=== PATIENT | female | born 1995 | race Caucasian/White ===

== ENCOUNTER 2019-04-02 14:02 | Emergency (ER) | payer OTHER, SELFPAY ==
[2019-04-02 14:15] VITALS: BP 109/74; PULSE 66; RESP 18; TEMP 37.1; O2SAT 96; BMI 26.6
--- NOTE | 2019-04-02 14:26 | DI.RAD.S_ITS ---
PROCEDURE: XR FOOT RT MIN 3V INDICATIONS: stepped on unknown foreign body. Please eval for retained TECHNIQUE: 3 views of the foot were acquired. COMPARISON: None. FINDINGS: Bones: No fractures or dislocations. No suspicious bony lesions. Soft tissues: No tibiotalar joint effusion. Achilles tendon appears normal. IMPRESSION: No radiopaque foreign body. No acute fracture. No osseous lesion. If symptoms or clinical suspicion for pathology persists, repeat plain films, or advanced imaging (CT, bone scan, or MRI) may be helpful for further assessment. Dictated by: [place] Ayala M.D. on 04/02/2019 at 13:45 Approved by: [place] Ayala M.D. on 04/02/2019 at 13:45
--- NOTE | 2019-04-02 15:10 | PC.NURSE ---
Late Entry at 1510-noticed mild swelling to lower puncture wounds. No active bleeding at this time. Pt assisted with wound scrubbing and soaking the affected foot in water+hibiclens solution. Pt tolerating this well
--- NOTE | 2019-04-02 15:11 | ED.SKABFB ---
HPI - Skin/Abscess/Foreign Bdy <Keisha Menon PA-C - Last Filed: 04/02/19 21:02> General Chief complaint: Skin/Abscess/Foreign Body Stated complaint: Stepped on sharp object Time Seen by Provider: 04/02/19 15:34 Source: patient Mode of arrival: ambulatory Limitations: no limitations History of Present Illness HPI narrative: This 23-year-old female stepped on a metal numeric marker at work that punctured through her rubber soled shoes into her right foot. She has had pain and difficulty putting pressure on the foot since then. She denies any other injury. Not painful without pressure on the area. She is not sure of when her last tetanus vaccine was. She denies any possibility of Related Data Home Medications Medication Instructions Recorded Confirmed Mirena 52 mg INTRAU #0 ea 06/30/16 06/22/18 Previous Rx's Medication Instructions Recorded levofloxacin 500 mg PO DAILY 7 Days #7 tab 04/02/19 Allergies Allergy/AdvReac Type Severity Reaction Status Date / Time No Known Allergies Allergy Uncoded 06/22/18 10:51 Review of Systems <Keisha Menon PA-C - Last Filed: 04/02/19 21:02> Review of Systems ROS Unobtainable: All systems reviewed & are unremarkable except as noted in HPI and below PFSH <Keisha Menon PA-C - Last Filed: 04/02/19 21:02> Medical History (Updated 04/02/19 @ 15:52 by Keisha Menon PA-C) depression (Resolved) Surgical History (Updated 04/02/19 @ 15:48 by Keisha Menon PA-C) Status post ORIF of fracture of ankle (Resolved) Social History Smoking Status: Current every day smoker Social History Smoking Status: Current every day smoker Exam <Keisha Menon PA-C - Last Filed: 04/02/19 21:02> Narrative Exam Narrative: GENERAL APPEARANCE: Patient sitting comfortably, in no distress. LUNGS: Clear to auscultation bilaterally. HEART: Rate and rhythm regular without murmur, normal S1 and S2, no S3 or S4. DERMATOLOGIC: There are 3 patches of ecchymoses on the right foot plantar surface with very slight skin avulsions/punctures at the epidermis, 2 to 3 mm diameter, less than 1 mm in depth. Not bleeding or draining. Skin surrounding is tender, not erythematous or indurated MUSCULOSKELETAL: Right foot toes full range of motion, strength intact against resistance NEUROVASCULAR: Right foot toes warm and pink with brisk cap refill, sensation grossly intact Initial Vital Signs Initial Vital Signs: Vital Signs Temperature 98.8 F 04/02/19 14:15 Pulse Rate 66 04/02/19 14:15 Respiratory Rate 18 04/02/19 14:15 Blood Pressure 109/74 04/02/19 14:15 Pulse Oximetry 96 04/02/19 14:15 <hSannan Styles DO - Last Filed: 04/06/19 18:56> Initial Vital Signs Initial Vital Signs: Vital Signs Temperature 98.8 F 04/02/19 14:15 Pulse Rate 66 04/02/19 14:15 Respiratory Rate 18 04/02/19 14:15 Blood Pressure 109/74 04/02/19 14:15 Pulse Oximetry 96 04/02/19 14:15 Course <Keisha Menon PA-C - Last Filed: 04/02/19 21:02> Orders Ordered: Discontinued Medications Diphtheria/Tetanus/Acell Pertussis (Adacel) 0.5 ml IM .ONCE ONE Stop: 04/02/19 15:50 Last Admin: 04/02/19 15:50 Dose: 0.5 ml Vital Signs - 8 hr 04/02/19 14:15 04/02/19 16:17 Temperature 98.8 F Pulse Rate 66 58 L Respiratory Rate 18 16 Blood Pressure 109/74 111/64 Pulse Oximetry 96 97 <Shannan Styles DO - Last Filed: 04/06/19 18:56> Orders Ordered: Discontinued Medications Diphtheria/Tetanus/Acell Pertussis (Adacel) 0.5 ml IM .ONCE ONE Stop: 04/02/19 15:50 Last Admin: 04/02/19 15:50 Dose: 0.5 ml Vital Signs - 8 hr 04/02/19 14:15 04/02/19 16:17 Temperature 98.8 F Pulse Rate 66 58 L Respiratory Rate 18 16 Blood Pressure 109/74 111/64 Pulse Oximetry 96 97 MDM - Skin/Abscess/Foreign Bdy <Keisha Menon PA-C - Last Filed: 04/02/19 21:02> Imaging Data foot: Radiologist's impression: Chart Viewer Diagnostics DATE TYPE STATUS AUTHOR Hx 04/02/19 14:26 [place] Ayala 09/02/18 11:21 [facility], Ankle X-Ray Minnie Lorenz R 23, F1995 REG ER, ED.LOC - Main ED: R07 157.48cm 66.224kg BMI: 26.7kg/m? Skin/Abscess/Foreign Body Search Chart ONSET 02/16/17 11/03/17 Today 14:15 Minnie Lorenz R 23 F 1995 [place] [address] XRay Report Signed Patient: Minnie Lorenz RMR#: [id number] : 1995Acct:[id number] Age/Sex: 23 / FDate of Service: 04/02/19 Loc: ED Accession Number: [id number] Procedure: XR foot RT min 3V Ordering Provider: Keisha Menon P.A-C PROCEDURE: XR FOOT RT MIN 3V INDICATIONS: stepped on unknown foreign body. Please eval for retained TECHNIQUE: 3 views of the foot were acquired. COMPARISON: None. FINDINGS: Bones: No fractures or dislocations. No suspicious bony lesions. Soft tissues: No tibiotalar joint effusion. Achilles tendon appears normal. IMPRESSION: No radiopaque foreign body. No acute fracture. No osseous lesion. If symptoms or clinical suspicion for pathology persists, repeat plain films, or advanced imaging (CT, bone scan, or MRI) may be helpful for further assessment. Dictated by: [place] Ayala M.D. on 04/02/2019 at 13:45 Approved by: [place] Ayala M.D. on 04/02/2019 at 13:45 Discharge Plan Departure Patient Disposition: Home Clinical Impression: Puncture wound of foot, right Qualifiers: Encounter type: initial encounter Qualified Code(s): S91.331A - Puncture wound without foreign body, right foot, initial encounter Discharge Date/Time: 04/02/19 16:18 Interventions: ED Discharge Assessment Last Done: 04/02/19 16:17 Instructions: DI for Puncture Wound Activity Restrictions/Additional Instructions: Please keep the skin clean and dry and use padded dressing as needed for comfort when walking. Remain off of work tomorrow and you can return on Wednesday as long as you are feeling better. 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 Please return or see your PCP right away if any signs of infection (i.e. Acutely worsening pain, swelling, streaking redness, fever, etc,) or antibiotic reaction as we talked about, otherwise you can return to your regular schedule if this is feeling better in a couple of days. We have updated your tetanus/whooping cough vaccine today. Prescriptions: New levofloxacin 500 mg tablet 500 mg PO DAILY 7 Days Qty: 7 RF: 0 Discontinued citalopram 10 mg tablet 10 mg PO DAILY Qty: 30 RF: 3 No Action Mirena 1 EACH intrauterine device 52 mg INTRAU Qty: 0 RF: 0 Referrals: Mala Dumont DO [Primary Care Provider] - <Shannan Styles DO - Last Filed: 04/06/19 18:56> Cosign ED Attending Cosefraínature Attestation: I was immediately available in the department for consultation. Xray imaging was negative. This documentation has been reviewed and I agree with assessment and plan. Supervised by Shannan Styles DO
[2019-04-02] MEDS: TET,DIPH,PERTUSS(ACELL),VAC/PF 0.5 ML SYRINGE IM (15:50)
[2019-04-02 16:17] VITALS: BP 111/64; PULSE 58; RESP 16; O2SAT 97
== END 2019-04-02 16:18 | disposition home or self-care (01) ==
PROVIDERS: Emergency Provider Internal Medicine; PCP Family Medicine
DX: S91.331A Puncture wound without foreign body, right foot, initial encounter (principal); W22.8XXA Striking against or struck by other objects, initial encounter; Y99.0 Civilian activity done for income or pay; Z23 Encounter for immunization
CPT/HCPCS: 73630; 90471; 99283; 90715

== ENCOUNTER → 2019-04-17 09:06 | Outpatient (CLI) | payer OTHER, MEDICAID, SELFPAY ==
--- NOTE | 2019-04-17 09:07 | DI.US.S_ITS ---
PROCEDURE: US PELVIC COMPLETE INDICATIONS: EVALUATE INTRAUTERINE DEVICE PLACEMENT TECHNIQUE: Real-time scanning was performed of the pelvic organs, with image documentation. Additional endovaginal scanning was necessary due to incomplete visualization of the adnexal and endometrial structures by transabdominal scanning. COMPARISON: [facility], [place], US PELVIC COMPLETE, 06/22/2018, 11:22. FINDINGS: Transabdominal scanning: Limited scanning through the kidneys shows no hydronephrosis. No pathologic free abdominal or pelvic fluid. Endovaginal scanning: Uterus: Uterus is normal in size at 8.2 x 4.9 x 3.3 cm. The endometrium measures 4.4 mm in combined thickness. Intrauterine device present in expected central position. Ovaries: Ovaries are normal in size measuring 4.0 x 3.1 x 2.4 cm on the right and 2.4 x 2.1 x 1.8 cm on the left. Regressing physiologic cyst associated with the right ovary measuring up to 2.1 cm. IMPRESSION: 1. Intrauterine device in expected position. Dictated by: Seven DE OLIVEIRA Interpreted: Chase Martinez MD on 04/17/2019 at 10:38 Approved by: Ольга Mancuso M.D. on 04/18/2019 at 14:01
== END ==
PROVIDERS: PCP Family Medicine; Visit Provider Obstetrics & Gynecology
DX: Z30.431 Encounter for routine checking of intrauterine contraceptive device (principal); R10.2 Pelvic and perineal pain; N92.6 Irregular menstruation, unspecified
CPT/HCPCS: 76830; 76856

== ENCOUNTER 2019-09-12 21:49 | Emergency (ER) | payer OTHER, MEDICAID, SELFPAY ==
[2019-09-12 22:03] VITALS: BP 115/58; PULSE 78; RESP 18; TEMP 36.7; O2SAT 98
--- NOTE | 2019-09-12 23:30 | ED.GENADULT ---
HPI - General Adult General Chief complaint: Dizziness Stated complaint: always cold, shakey legs, dizzy, 5 weeks Time Seen by Provider: 09/12/19 23:22 Source: patient Mode of arrival: Ambulatory Limitations: no limitations History of Present Illness HPI narrative: This is a 23-year-old female who comes in complaint of not feeling well. She states that she was told she was about 5 weeks. She states this was based on her dates which were around August 10. Patient states she has felt cold and just can't seem to get warm. She has been hungry all the time and keep eating but does not seem to feel full. She has felt a little bit shaky at times. She has felt a little bit dizzy at times. She has not had any passing out. She has not had any cold cough or congestion. She has not had any fevers. Patient denies any chest pain or shortness of breath. She denies any abdominal pain. She feels like she is hungry a lot. Patient had frequency but denies dysuria or urgency. She states when she goes every 30-45 minutes typically. She states she drinks about 7 8 glasses of water daily. She has not had any rashes. No discharge or vaginal bleeding. No diarrhea constipation. This is her 3rd the 1st 2 she did not have complications in her children her age 5 and 3. She has been feeling very anxious about this and was unexpected although it is a positive situation. She denies any depression she states she has been crying some but feels like she has more hormonal and not depressed. She has her 1st visit with Dr. Benson scheduled for October 12. Related Data Home Medications Medication Instructions Recorded Confirmed Mirena 52 mg INTRAU #0 ea 06/30/16 08/01/19 Previous Rx's Medication Instructions Recorded cephalexin [Keflex] 500 mg PO BID #10 cap 09/12/19 Allergies Allergy/AdvReac Type Severity Reaction Status Date / Time No Known Allergies Allergy Uncoded 07/21/19 11:55 Review of Systems Review of Systems ROS Unobtainable: All systems reviewed & are unremarkable except as noted in HPI and below Patient History Medical History depression (Resolved) Surgical History Status post ORIF of fracture of ankle (Resolved) Social History Smoking Status: Current every day smoker alcohol intake frequency: other Substance Use Type: does not use Exam Narrative Exam Narrative: GEN: well nourished, well appearing female, alert and oriented x 3, patient appears to be in no acute distress. HEENT: Atraumatic, pupils are equal round reactive to light, extraocular movements are intact, nares are clear, TMs are clear with no fluid, there is no conjunctival pallor. Throat is clear without any exudates, erythema, tonsillar enlargement or uvular deviation HEART: Regular rate and rhythm without murmur, clicks, rubs. Pulses are equal in upper and lower extremities LUNGS:Lungs clear to auscultation, no wheezes, rales, crackles, chest moves symmetrically ABD:bowel sounds normal, soft, non-tender, no guarding, rebound, rigidity, no masses noted, no hepatosplenomegaly :No CVA tenderness MSCL: Non-tender, no muscle atrophy, muscles strength 5/5 upper and lower extremities, full range of motion, normal gait NEURO:CN 2-12 intact, sensation normal SKIN: No rash, no erythema. Initial Vital Signs Initial Vital Signs: Vital Signs Temperature 98.1 F 09/12/19 22:03 Pulse Rate 78 09/12/19 22:03 Respiratory Rate 18 09/12/19 22:03 Blood Pressure 115/58 L 09/12/19 22:03 Pulse Oximetry 98 09/12/19 22:03 Course Orders Ordered: ED Orders 09/12/19 23:40 Urine Culture Stat Urine Microscopic Stat Discontinued Medications Cephalexin HCl (Keflex) 500 mg PO NOW ONE Stop: 09/12/19 23:57 Last Admin: 09/13/19 00:01 Dose: 500 mg Documented by: [email or web address] Vital Signs Vital signs: Vital Signs - 8 hr 09/12/19 22:03 09/13/19 00:05 Temperature 98.1 F Pulse Rate 78 74 Respiratory Rate 18 17 Blood Pressure 115/58 L 112/57 L Pulse Oximetry 98 99 Medical Decision Making Lab Data Lab results reviewed: Yes I reviewed the patient's lab results. Labs: Lab Results 09/12/19 Range/Units 23:40 Urine RBC None seen (0-5/HPF) Urine WBC 1-5/hpf (0-5/HPF) Ur Squamous Epith Cells 1-5 /hpf (0-5/HPF) Urine Bacteria Few (2-10) H (None) Ur Culture Indicated? Specimen cultured Point of Care Testing Test Results Positive Urine Dip Bedside Urine Glucose Negative Bedside Urine Bilirubin - Negative Bedside Urine Ketone - Negative Urine Specific [place] 1.010 Bedside Urine Occult Blood - Negative Bedside Urine pH 7.0 Bedside Urine Protein - Negative Bedside Urine Urobilinogen 1+ 2mg Bedside Urine Nitrite - Negative Bedside Urine Leukocytes +++ 500 Esterase Point of care testing: Point of Care Testing Test Results Positive Urine Dip Bedside Urine Glucose Negative Bedside Urine Bilirubin - Negative Bedside Urine Ketone - Negative Urine Specific [place] 1.010 Bedside Urine Occult Blood - Negative Bedside Urine pH 7.0 Bedside Urine Protein - Negative Bedside Urine Urobilinogen 1+ 2mg Bedside Urine Nitrite - Negative Bedside Urine Leukocytes +++ 500 Esterase MDM Narrative Medical decision making narrative: Patient's urine is suspicious for UTI, patient has had frequency that she describes every 30-45 minutes although no dysuria. Then little bit of sense of urgency. Discussed covering her with Keflex and short-term follow-up with her primary care for symptoms were not resolving. She had sort of a constellation of symptoms some which could be related to her UTI, some to her . Patient is comfortable with plan for follow-up but understands return precautions. Discharge Plan Departure Patient Disposition: Home Clinical Impression: UTI (urinary tract infection), Discharge Date/Time: 09/13/19 00:05 Instructions: DI for Urinary Tract Infection (UTI) Activity Restrictions/Additional Instructions: Follow-up at your appointment with Dr. Benson on October 12 if your symptoms have not totally resolved with antibiotics I would recommend following up sooner. Take antibiotics until completely gone. Your prescription was sent to [facility] in [place]. Return to the emergency department for fevers greater 100.4 F, passing out, new chest pain, shortness of breath, no abdominal pain, vaginal bleeding, flank or back pain, persistent vomiting, black or bloody stools or other new or concerning symptoms. Prescriptions: New cephalexin [Keflex] 500 mg capsule 500 mg PO BID Qty: 10 RF: 0 No Action Mirena 1 EACH intrauterine device 52 mg INTRAU Qty: 0 RF: 0 Referrals: Mala Dumont DO [Primary Care Provider] -
[2019-09-12 23:48] LABS: RBC Urine None Seen (0-5/HPF)
[2019-09-12 23:58] LABS: Bacteria Urine Few (2-10); Culture Indicated Urine Specimen Cultured; Squamous Epithelial Cell Urine 1-5 /HPF (0-5/HPF); WBC Urine 1-5/HPF (0-5/HPF)
[2019-09-13] MEDS: cephALEXin 250 MG CAPSULE 500 MG PO (00:01)
[2019-09-13 00:05] VITALS: BP 112/57; PULSE 74; RESP 17; O2SAT 99
== END 2019-09-13 00:05 | disposition home or self-care (01) ==
PROVIDERS: Emergency Provider Emergency Medicine; Family Provider Family Medicine; PCP Family Medicine
DX: O23.41 Unspecified infection of urinary tract in pregnancy, first trimester (principal); Z3A.01 Less than 8 weeks gestation of pregnancy
CPT/HCPCS: 81003; 81015; 81025; 87086; 99282; 99283

== ENCOUNTER 2019-09-28 15:19 | Emergency (ER) | payer OTHER, MEDICAID, SELFPAY ==
[2019-09-28 15:36] VITALS: BP 104/59; PULSE 77; RESP 14; TEMP 37; O2SAT 95; BMI 27.1
[2019-09-28 16:02] LABS: RBC Urine 0-1/HPF (0-5/HPF); Squamous Epithelial Cell Urine 1-5 /HPF (0-5/HPF); WBC Urine 5-10/HPF (0-5/HPF)
[2019-09-28 16:03] LABS: Bacteria Urine Few (2-10); Culture Indicated Urine Specimen Cultured
--- NOTE | 2019-09-28 16:10 | ED.PREGNANCY ---
HPI - <Keisha Menon PA-C - Last Filed: 09/28/19 21:13> General Chief complaint: Vaginal Bleeding Stated complaint: 7 weeks , bleeding Time Seen by Provider: 09/28/19 15:27 Source: patient Mode of arrival: Ambulatory Limitations: no limitations History of Present Illness HPI Narrative: This 23-year-old female who is 7 weeks (LMP approximately 08/11), G2, P2, comes to ED secondary to noticing some blood on her toilet paper and a little pink in the toilet when urinating earlier. She states that she has had some mild lower abdominal cramping, thinks this could just be because she is hungry. She has had some nausea with this , but no vomiting. She denies any new dysuria, urinary frequency or urgency. She has not had any diarrhea or blood in the stools. She states she has had a bit of a cough, but no dyspnea, no fever, chest pain or wheeze. No new pain or swelling in the extremities. She has not had any symptoms like this with previous pregnancies. Related Data Home Medications Medication Instructions Recorded Confirmed Mirena 52 mg INTRAU #0 ea 06/30/16 08/01/19 Previous Rx's Medication Instructions Recorded cephalexin [Keflex] 500 mg PO BID #10 cap 09/12/19 nitrofurantoin macrocrystal 100 mg PO BID 5 Days #10 cap 09/28/19 Allergies Allergy/AdvReac Type Severity Reaction Status Date / Time No Known Drug Allergies Allergy Verified 09/28/19 15:36 Review of Systems <Keisha Menon PA-C - Last Filed: 09/28/19 21:13> Review of Systems ROS Unobtainable: All systems reviewed & are unremarkable except as noted in HPI and below PMFSH - <KERI Brooks Last Filed: 09/28/19 21:13> Past Medical History Additional medical history: History of depression. Status post ORIF ankle fracture with chronic pain left ankle Exam <Keisha Menon PA-C - Last Filed: 09/28/19 21:13> Narrative Exam Narrative: GENERAL APPEARANCE: Patient sitting comfortably, in no distress. HEENT: PERRL, EOMI, conjunctiva pink NECK: Supple LUNGS: Clear to auscultation bilaterally, no cough on exam. HEART: Rate and rhythm regular, normal S1 and S2, no S3 or S4. ABDOMEN: Soft, nondistended, bowel sounds present x 4 quadrants, no masses palpable, very minimal lower quadrant tenderness throughout without guarding or rebound, no suprapubic tenderness, no CVAT EXTREMITIES: No edema, no calf tenderness DERMATOLOGIC: No jaundice or exanthem NEUROLOGIC: Alert and oriented with normal speech and coordination : see course Initial Vital Signs Initial Vital Signs: Vital Signs Temperature 98.6 F 09/28/19 15:36 Pulse Rate 77 09/28/19 15:36 Respiratory Rate 14 09/28/19 15:36 Blood Pressure 104/59 L 09/28/19 15:36 Pulse Oximetry 95 09/28/19 15:36 <Alberto Perkins DO - Last Filed: 09/28/19 21:44> Initial Vital Signs Initial Vital Signs: Vital Signs Temperature 98.6 F 09/28/19 15:36 Pulse Rate 77 09/28/19 15:36 Respiratory Rate 14 09/28/19 15:36 Blood Pressure 104/59 L 09/28/19 15:36 Pulse Oximetry 95 09/28/19 15:36 Course <Keisha Menon PA-C - Last Filed: 09/28/19 21:13> Course Additional Information: Patient was feeling well without recurrent symptoms however just prior to ultrasound report coming back she began to experience some osei vaginal bleeding. On pelvic exam, there is a moderate amount of dark blood in the vaginal vault, difficult to determine whether the os is open (closed parous os from what I can visualize), no tenderness. I spoke with Dr. Arana hospital admissions officer for OB this evening who agrees patient can monitor at home and call 1st thing in the morning for follow-up appointment tomorrow. Will treat for bacteriuria. Return precautions given and patient is agreeable. Orders Ordered: ED Orders 09/28/19 15:30 Urine Culture Stat Urine Microscopic Stat 09/28/19 16:09 ABO RH Type Stat Complete Blood Count AUTO DIFF Stat HCG Quantitative Stat 09/28/19 16:19 OB <= 14 weeks fetus Stat Vital Signs Vital signs: Vital Signs - 8 hr 09/28/19 15:36 09/28/19 19:09 Temperature 98.6 F Pulse Rate 77 74 Respiratory Rate 14 Blood Pressure 104/59 L 111/54 L Pulse Oximetry 95 98 <Alberto Perkins DO - Last Filed: 09/28/19 21:44> Orders Ordered: ED Orders 09/28/19 15:30 Urine Culture Stat Urine Microscopic Stat 09/28/19 16:09 ABO RH Type Stat Complete Blood Count AUTO DIFF Stat HCG Quantitative Stat 09/28/19 16:19 US OB <= 14 weeks fetus Stat Vital Signs Vital signs: Vital Signs - 8 hr 09/28/19 15:36 09/28/19 19:09 Temperature 98.6 F Pulse Rate 77 74 Respiratory Rate 14 Blood Pressure 104/59 L 111/54 L Pulse Oximetry 95 98 MDM - OB/Uterine Contractions <Keisha Menon PA-C - Last Filed: 09/28/19 21:13> Lab Data Attestation: I reviewed the patient's lab results. Result diagrams: 09/28/19 16:09 Labs: Lab Results 09/28/19 09/28/19 09/28/19 Range/Units 15:30 16:09 16:09 WBC 9.4 (4.5-11.0) X10^3/uL RBC 3.78 L (4.0-5.2) X10^6/uL Hgb 12.1 (12.0-16.0) g/dL Hct 34.8 L (36-46) % MCV 92.0 (80-100) fL MCH 32.1 (26-34) PG MCHC 34.8 (30-36) % RDW 13.1 (11.6-14.8) % Plt Count 248 (150-400) X10^3/uL Neut % (Auto) 76.2 H (50-75) % Lymph % (Auto) 15.0 L (25-40) % [place] % (Auto) 6.9 (3-14) % Eos % (Auto) 1.3 L (2-4) % Baso % (Auto) 0.6 (0-2) % Neut # (Auto) 7200 H (5948-9971) /uL Lymph # (Auto) 1400 (3853-3095) /uL [place] # (Auto) 600 (0-900) /uL Eos # (Auto) 100 (0-450) /uL Baso # (Auto) 100 (0-100) /uL HCG, Quant [id number] mIU/mL Urine RBC 0-1/hpf (0-5/HPF) Urine WBC 5-10/hpf H (0-5/HPF) Ur Squamous Epith Cells 1-5 /hpf (0-5/HPF) Urine Bacteria Few (2-10) H (None) Ur Culture Indicated? Specimen cultured Blood Type 09/28/19 Range/Units 16:09 WBC (4.5-11.0) X10^3/uL RBC (4.0-5.2) X10^6/uL Hgb (12.0-16.0) g/dL Hct (36-46) % MCV (80-100) fL MCH (26-34) PG MCHC (30-36) % RDW (11.6-14.8) % Plt Count (150-400) X10^3/uL Neut % (Auto) (50-75) % Lymph % (Auto) (25-40) % [place] % (Auto) (3-14) % Eos % (Auto) (2-4) % Baso % (Auto) (0-2) % Neut # (Auto) (7761-7555) /uL Lymph # (Auto) (3885-6220) /uL [place] # (Auto) (0-900) /uL Eos # (Auto) (0-450) /uL Baso # (Auto) (0-100) /uL HCG, Quant mIU/mL Urine RBC (0-5/HPF) Urine WBC (0-5/HPF) Ur Squamous Epith Cells (0-5/HPF) Urine Bacteria (None) Ur Culture Indicated? Blood Type B Positive Urine Dip Bedside Urine Glucose Negative Bedside Urine Bilirubin - Negative Bedside Urine Ketone - Negative Urine Specific [place] 1.015 Bedside Urine Occult Blood +++ Bedside Urine pH 6.0 Bedside Urine Protein +/- 15 Bedside Urine Urobilinogen +/- 1mg Bedside Urine Nitrite - Negative Bedside Urine Leukocytes + 70 Esterase Imaging Data : Radiologist's impression: [address] [address] Ultrasound Report Signed Patient: Minnie Lorenz RMR#: [id number] : 1995Acct:[id number] Age/Sex: 23 / FDate of Service: 09/28/19 Loc: ED Accession Number: [id number] Procedure: US OB <= 14 weeks fetus Ordering Provider: Keisha Menon P.A-C PROCEDURE: US OB <= 14 WEEKS FETUS INDICATIONS: 7 WEEKS PREG, SPOTTING, CRAMPS OUTSIDE/PRIOR DATING DATA: Last menstrual period (LMP): 08/11/19. LMP-based estimated date of delivery (CORY): 05/17/20. First dating scan (date and location): Current study, 09/28/19. Estimated date of delivery (CORY) from first dating scan: 05/08/20. TECHNIQUE: Real-time scanning was performed of the fetus and maternal pelvic organs, with image documentation. COMPARISON: None. FINDINGS: Embryo: There is a single pole with an average crown-rump length of 1.71 cm which corresponds to an 8 week one day plus or -5 day gestation. There is detectable cardiac activity the fetus at a rate of 175 beats per minute. A 4 mm yolk sac and unfused amnion are visible. Measurement variability in dating: +/- 4 weeks by LMP, +/- 7 days by mean sac diameter (use before 6 weeks gestation if crown-rump length not able to be measured), +/- 5 days by crown-rump length (up to 8 weeks 6 days gestation), +/- 7 days by crown-rump length (up to 13 weeks 6 days gestation). Maternal organs: The uterus is anteverted and there is an intrauterine gestational sac with products of conception. No definite perigestational hemorrhage. The right ovary contains a corpus luteum cyst. The left ovary is not well-seen. Limited images through the kidneys demonstrate no hydronephrosis. IMPRESSION: 1. Single living intrauterine with a gestational age by crown-rump length of 8 weeks one day and estimated due date of 05/08/20. 2. Right ovarian corpus luteum. 3. No visible perigestational hemorrhage. Dictated by: Mayra Fiore M.D. on 09/28/2019 at 18:15 Approved by: Mayra Fiore M.D. on 09/28/2019 at 18:19 <Alberto Perkins DO - Last Filed: 09/28/19 21:44> Lab Data Labs: Lab Results 09/28/19 09/28/19 09/28/19 Range/Units 15:30 16:09 16:09 WBC 9.4 (4.5-11.0) X10^3/uL RBC 3.78 L (4.0-5.2) X10^6/uL Hgb 12.1 (12.0-16.0) g/dL Hct 34.8 L (36-46) % MCV 92.0 (80-100) fL MCH 32.1 (26-34) PG MCHC 34.8 (30-36) % RDW 13.1 (11.6-14.8) % Plt Count 248 (150-400) X10^3/uL Neut % (Auto) 76.2 H (50-75) % Lymph % (Auto) 15.0 L (25-40) % [place] % (Auto) 6.9 (3-14) % Eos % (Auto) 1.3 L (2-4) % Baso % (Auto) 0.6 (0-2) % Neut # (Auto) 7200 H (7640-2552) /uL Lymph # (Auto) 1400 (6505-4779) /uL [place] # (Auto) 600 (0-900) /uL Eos # (Auto) 100 (0-450) /uL Baso # (Auto) 100 (0-100) /uL HCG, Quant 765400 mIU/mL Urine RBC 0-1/hpf (0-5/HPF) Urine WBC 5-10/hpf H (0-5/HPF) Ur Squamous Epith Cells 1-5 /hpf (0-5/HPF) Urine Bacteria Few (2-10) H (None) Ur Culture Indicated? Specimen cultured Blood Type 09/28/19 Range/Units 16:09 WBC (4.5-11.0) X10^3/uL RBC (4.0-5.2) X10^6/uL Hgb (12.0-16.0) g/dL Hct (36-46) % MCV (80-100) fL MCH (26-34) PG MCHC (30-36) % RDW (11.6-14.8) % Plt Count (150-400) X10^3/uL Neut % (Auto) (50-75) % Lymph % (Auto) (25-40) % [place] % (Auto) (3-14) % Eos % (Auto) (2-4) % Baso % (Auto) (0-2) % Neut # (Auto) (0571-0843) /uL Lymph # (Auto) (1396-2698) /uL [place] # (Auto) (0-900) /uL Eos # (Auto) (0-450) /uL Baso # (Auto) (0-100) /uL HCG, Quant mIU/mL Urine RBC (0-5/HPF) Urine WBC (0-5/HPF) Ur Squamous Epith Cells (0-5/HPF) Urine Bacteria (None) Ur Culture Indicated? Blood Type B Positive Urine Dip Bedside Urine Glucose Negative Bedside Urine Bilirubin - Negative Bedside Urine Ketone - Negative Urine Specific [place] 1.015 Bedside Urine Occult Blood +++ Bedside Urine pH 6.0 Bedside Urine Protein +/- 15 Bedside Urine Urobilinogen +/- 1mg Bedside Urine Nitrite - Negative Bedside Urine Leukocytes + 70 Esterase Discharge Plan Departure Patient Disposition: Home Clinical Impression: Threatened , Asymptomatic bacteriuria during Discharge Date/Time: 09/28/19 19:09 Instructions: DI for Vaginal Bleeding During Activity Restrictions/Additional Instructions: Today, it is not clear whether your vaginal bleeding is due to impending miscarriage or another cause. Your blood work and ultrasound were as expected for an 8 week . We call this a ?threatened miscarriage? as we talked about. Please rest tonight, take Tylenol as needed for pain. Return as we talked about if you have acutely worsening symptoms, i.e. severe bleeding, weakness, new pain. I Have also prescribed an antibiotic for you to start (sent to [facility] in [place]) as it did look like you had some microscopic blood and bacteria in your urine, and we treat this during . I spoke with Dr. Arana, who is on-call for Dr. Pisano, and you should call 1st thing in the morning, let them know you were seen in the emergency room for vaginal bleeding with , and need to be seen for follow-up tomorrow. She said they will get you in for an appointment. Prescriptions: New nitrofurantoin macrocrystal 100 mg capsule 100 mg PO BID 5 Days Qty: 10 RF: 0 No Action Mirena 1 EACH intrauterine device 52 mg INTRAU Qty: 0 RF: 0 cephalexin [Keflex] 500 mg capsule 500 mg PO BID Qty: 10 RF: 0 Referrals: Dru Pisano MD [Physician] - Mala Dumont DO [Primary Care Provider] - <Alberto Perkins DO - Last Filed: 09/28/19 21:44> Sign Out Provider Sign Out Attestation: Dr Perkins Co-Sign Statement: I was available for consultation during this patient's emergency department visit. This chart is signed by myself for administrative purposes only. I did not have direct contact with this patient during this visit. They were seen independently by the APC.
--- NOTE | 2019-09-28 16:19 | DI.US.S_ITS ---
PROCEDURE: US OB <= 14 WEEKS FETUS INDICATIONS: 7 WEEKS PREG, SPOTTING, CRAMPS OUTSIDE/PRIOR DATING DATA: Last menstrual period (LMP): 08/11/19. LMP-based estimated date of delivery (CORY): 05/17/20. First dating scan (date and location): Current study, 09/28/19. Estimated date of delivery (CORY) from first dating scan: 05/08/20. TECHNIQUE: Real-time scanning was performed of the fetus and maternal pelvic organs, with image documentation. COMPARISON: None. FINDINGS: Embryo: There is a single pole with an average crown-rump length of 1.71 cm which corresponds to an 8 week one day plus or -5 day gestation. There is detectable cardiac activity the fetus at a rate of 175 beats per minute. A 4 mm yolk sac and unfused amnion are visible. Measurement variability in dating: +/- 4 weeks by LMP, +/- 7 days by mean sac diameter (use before 6 weeks gestation if crown-rump length not able to be measured), +/- 5 days by crown-rump length (up to 8 weeks 6 days gestation), +/- 7 days by crown-rump length (up to 13 weeks 6 days gestation). Maternal organs: The uterus is anteverted and there is an intrauterine gestational sac with products of conception. No definite perigestational hemorrhage. The right ovary contains a corpus luteum cyst. The left ovary is not well-seen. Limited images through the kidneys demonstrate no hydronephrosis. IMPRESSION: 1. Single living intrauterine with a gestational age by crown-rump length of 8 weeks one day and estimated due date of 05/08/20. 2. Right ovarian corpus luteum. 3. No visible perigestational hemorrhage. Dictated by: Mayra Fiore M.D. on 09/28/2019 at 18:15 Approved by: Mayra Fiore M.D. on 09/28/2019 at 18:19
[2019-09-28 16:32] LABS: Add Manual Diff / Slide Review NO; Basophils Absolute Auto 100 /uL (0-100); Basophils Percent Auto 0.6 % (0-2); Eosinophils Absolute Auto 100 /uL (0-450); Eosinophils Percent Auto 1.3 % (2-4); Hematocrit 34.8 % (36-46); Hemoglobin 12.1 g/dL (12.0-16.0); Lymphocytes Absolute Auto 1400 /uL (1100-4500); Mean Corpuscular HGB Conc 34.8 % (30-36); Mean Corpuscular Hemoglobin 32.1 PG (26-34); Monocytes Absolute Auto 600 /uL (0-900); Monocytes Percent Auto 6.9 % (3-14); Neutrophils Absolute Auto 7200 /uL (1500-7000); Neutrophils Percent Auto 76.2 % (50-75); Platelet Count 248 X10^3/uL (150-400); Red Blood Cell Count 3.78 X10^6/uL (4.0-5.2); Red Cell Distribution Width 13.1 % (11.6-14.8); White Blood Cell Count 9.4 X10^3/uL (4.5-11.0)
[2019-09-28 17:09] LABS: HCG Quantitative /Beta subunit 148900 mIU/mL
--- NOTE | 2019-09-28 18:02 | PC.NURSE ---
pt voided after vaginal ultrasound and states she is concerned the bleeding is coming from her vagina too. reported to Annamarie Menon.
[2019-09-28 19:09] VITALS: BP 111/54; PULSE 74; O2SAT 98
== END 2019-09-28 19:09 | disposition home or self-care (01) ==
PROVIDERS: Emergency Provider Internal Medicine; Family Provider Family Medicine; PCP Family Medicine
DX: O20.0 Threatened abortion (principal); R82.71 Bacteriuria; Z3A.01 Less than 8 weeks gestation of pregnancy
CPT/HCPCS: 36415; 76801; 81003; 81015; 84702; 85025; 86900; 86901; 87086; 99284

== ENCOUNTER → 2019-10-06 12:17 | Outpatient (CLI) | payer OTHER, MEDICAID, SELFPAY ==
[2019-10-06 12:49] LABS: Add Manual Diff / Slide Review NO; Basophils Absolute Auto 0 /uL (0-100); Basophils Percent Auto 0.6 % (0-2); Eosinophils Absolute Auto 100 /uL (0-450); Eosinophils Percent Auto 1.7 % (2-4); Hematocrit 35.4 % (36-46); Hemoglobin 12.2 g/dL (12.0-16.0); Lymphocytes Absolute Auto 1100 /uL (1100-4500); Lymphocytes Percent Auto 16.3 % (25-40); Mean Corpuscular HGB Conc 34.5 % (30-36); Mean Corpuscular Hemoglobin 31.6 PG (26-34); Mean Corpuscular Volume 91.7 fL (80-100); Monocytes Absolute Auto 500 /uL (0-900); Monocytes Percent Auto 7.1 % (3-14); Neutrophils Absolute Auto 4800 /uL (1500-7000); Neutrophils Percent Auto 74.3 % (50-75); Platelet Count 258 X10^3/uL (150-400); Red Blood Cell Count 3.86 X10^6/uL (4.0-5.2); Red Cell Distribution Width 12.9 % (11.6-14.8); White Blood Cell Count 6.5 X10^3/uL (4.5-11.0)
[2019-10-06 12:52] LABS: Appearance Urine UA CLEAR; Bilirubin Urine UA NEGATIVE (NEGATIVE); Color Urine UA YELLOW; Glucose Urine UA NEGATIVE (Negative); Ketones Urine UA NEGATIVE (NEGATIVE); Leukocyte Esterase Urine UA 1+ (NEGATIVE); Nitrite Urine UA NEGATIVE (Negative); Occult Blood Urine UA NEGATIVE (Negative); Protein Urine UA NEGATIVE (Negative)
[2019-10-06 12:54] LABS: Hemoglobin A1C% w Est Avg Glu 4.6 % (4.0-6.0)
[2019-10-06 12:57] LABS: pH Urine UA 7.5 (4.5-8.0)
[2019-10-06 12:58] LABS: Bacteria Urine None Seen; RBC Urine None Seen (0-5/HPF)
[2019-10-06 13:03] LABS: Culture Indicated Urine Cult Not Indicated; Squamous Epithelial Cell Urine 1-5 /HPF (0-5/HPF); WBC Urine 1-5/HPF (0-5/HPF)
[2019-10-06 13:58] LABS: Glucose 70 mg/dL (70-100)
[2019-10-06 15:59] LABS: Hepatitis B Surface Antigen NEGATIVE s/c (NEGATIVE); Rubella Antibody IgG 26.1 IU/mL (>15)
[2019-10-06 16:17] LABS: HIV 1 & 2 Ab/Ag 4th Gen Combo NEGATIVE (NEGATIVE); Hep C Virus Ab w/Reflex Quant NEGATIVE s/c (NEGATIVE)
[2019-10-08 17:58] LABS: RPR Screen Nonreactive (Nonreactive)
[2019-10-10 13:31] LABS: HSV 1 IgM Screen Negative (Negative); HSV 2 IgM Screen Negative (Negative)
== END ==
PROVIDERS: PCP Family Medicine
DX: Z34.81 Encounter for supervision of other normal pregnancy, first trimester (principal)
CPT/HCPCS: 36415; 80055; 81003; 81015; 82947; 83036; 86695; 86696; 86787; 86803; 86850; 86900; 86901; 87086; 87389

== ENCOUNTER → 2019-10-27 09:36 | Outpatient (CLI) | payer OTHER, MEDICAID, SELFPAY ==
[2019-10-30 08:04] LABS: Sequential Screen 1st Trimeste FINAL PENDING
== END ==
PROVIDERS: PCP Family Medicine
DX: Z34.81 Encounter for supervision of other normal pregnancy, first trimester (principal); Z3A.12 12 weeks gestation of pregnancy; Z36.0 Encounter for antenatal screening for chromosomal anomalies
CPT/HCPCS: 36415; 84163; 84702

== ENCOUNTER → 2019-11-24 10:10 | Outpatient (CLI) | payer OTHER, MEDICAID, SELFPAY ==
[2019-11-24 14:05] LABS: Urine N gonorrhoeae NOT DETECTED
[2019-11-24 14:11] LABS: Urine Chlamydia NOT DETECTED
[2019-11-27 08:15] LABS: Sequential Screen 2nd Trimeste SCREEN NEGATIVE
== END ==
PROVIDERS: PCP Family Medicine
DX: Z34.82 Encounter for supervision of other normal pregnancy, second trimester (principal); Z3A.16 16 weeks gestation of pregnancy
CPT/HCPCS: 36415; 82105; 82677; 84163; 84702; 86336; 87491; 87591

== ENCOUNTER → 2020-02-19 10:29 | Outpatient (CLI) | payer OTHER, MEDICAID, SELFPAY ==
[2020-02-19 12:19] LABS: Hematocrit 35.3 % (36-46)
[2020-02-19 12:38] LABS: GTT (PREG) 1 Hour PP 50gm Dose 91 mg/dL (76-139)
== END ==
PROVIDERS: PCP Family Medicine
DX: Z34.82 Encounter for supervision of other normal pregnancy, second trimester (principal)
CPT/HCPCS: 36415; 82950; 85014; 85018

== ENCOUNTER → 2020-04-16 09:12 | Outpatient (CLI) | payer OTHER, MEDICAID, SELFPAY ==
[2020-04-17 15:50] LABS: Strep Grp B PCR NEG for Grp B Strep
== END ==
PROVIDERS: PCP Family Medicine
DX: Z34.83 Encounter for supervision of other normal pregnancy, third trimester (principal); Z3A.36 36 weeks gestation of pregnancy
CPT/HCPCS: 87653

== ENCOUNTER 2020-04-20 17:32 | Outpatient (CLI) | payer OTHER, MEDICAID, SELFPAY ==
--- NOTE | 2020-04-22 08:57 | PM.OBTRLD ---
Visit Information Visit Information Date of evaluation: 04/20/20 Primary OB Provider: Dru Pisano On-call OB Provider: Kenia Arana Reason for Evaluation: Yes rule out labor Comments/Additional reasons for admission: Patient complains of low pelvic and back pain and a clear discharge Vital Signs Vital Signs: Blood pressure 116/72, pulse of 85, temperature 97.5? [facility] Medical History (Updated 04/22/20 @ 09:00 by Kenia Arana MD) Encounter for IUD removal (Inactive) depression (Resolved ~2015) Spontaneous vaginal delivery (Inactive) Surgical History (Updated 10/03/19 @ 11:31 by Kamila Hernandez, RN) Status post ORIF of fracture of ankle (Resolved 09/02/18) Family History (Updated 10/03/19 @ 11:30 by Kamila Hernandez, RN) Grandmother No problems noted. 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 No fevers. ROS: Yes All systems reviewed with the patient and are negative except as otherwise documented Exam Vital Signs (past 8 hours): Blood pressure 116/72, pulse of 85, temperature 97.5? Evaluation Evaluation Baseline heart rate: 125 Variability: Moderate (11-25) monitor accelerations: Present monitor decelerations: Absent Contraction Frequency (minutes): 0 Category of Tracing: I Non-invasive Membranes Rupture Test: negative Diagnosis, Plan/Disposition Final Diagnosis (1) False labor after 37 completed weeks of gestation: Status: Acute Plan/Disposition Plan: Reassured patient that she is not ruptured and not in labor. The low pelvic and back discomfort is common at this time of . Patient is to go home and rest. Call if any symptoms change. OB Disposition: home
== END 2020-04-20 18:16 | disposition home or self-care (01) ==
LOC: OB 04-22 10:47
PROVIDERS: Referring Provider Specialist; Visit Provider Specialist
DX: O26.893 Other specified pregnancy related conditions, third trimester (principal); N89.8 Other specified noninflammatory disorders of vagina; R10.2 Pelvic and perineal pain; M54.5 Low back pain; Z3A.37 37 weeks gestation of pregnancy
CPT/HCPCS: 59025; 84112; G0378; G0379

== ENCOUNTER 2020-05-09 18:12 | Inpatient (IN) | payer OTHER, MEDICAID, SELFPAY ==
[2020-05-09 19:10] VITALS: BP 120/68
[2020-05-09 19:33] LABS: Add Manual Diff / Slide Review NO; Basophils Absolute Auto 100 /uL (0-100); Basophils Percent Auto 0.8 % (0-2); Eosinophils Absolute Auto 200 /uL (0-450); Eosinophils Percent Auto 1.4 % (2-4); Hematocrit 36.6 % (36-46); Hemoglobin 12.4 g/dL (12.0-16.0); Lymphocytes Absolute Auto 1800 /uL (1100-4500); Lymphocytes Percent Auto 15.6 % (25-40); Mean Corpuscular HGB Conc 33.9 % (30-36); Mean Corpuscular Hemoglobin 30.5 PG (26-34); Mean Corpuscular Volume 90.2 fL (80-100); Monocytes Absolute Auto 1000 /uL (0-900); Monocytes Percent Auto 8.8 % (3-14); Neutrophils Absolute Auto 8400 /uL (1500-7000); Neutrophils Percent Auto 73.4 % (50-75); Platelet Count 261 X10^3/uL (150-400); Red Blood Cell Count 4.06 X10^6/uL (4.0-5.2); White Blood Cell Count 11.4 X10^3/uL (4.5-11.0)
[2020-05-09] MEDS: miSOPROStoL 25 MCG TABLET VAG (19:35)
[2020-05-09 20:04] LABS: COVID19 -Nasal RAPID Negative (Negative)
[2020-05-10] MEDS: LACTATED RINGERS 1,000 ML 100 ML IV ×2 (06:02→09:15)
[2020-05-10] MEDS: OXYTOCIN PREMIX 30 UNIT/500 ML PLAST..BAG IV (06:02)
--- NOTE | 2020-05-10 07:53 | P.HPOB_ITS ---
OB HPI History of Present Condition Chief complaint: maternity : 3 Para: 2 Estimated Date of Delivery: 05/10/20 Estimated Gestational Age (weeks): 40 Narrative: Minnie Lorenz is a 24 year old female three para two with excellent dates and no problems during her . The patient is at term and desires induction because of maternal discomfort. Patient had a Bragg score of four and was brought in for misoprostol cervical ripening overnight. Pitocin was scheduled for induction in in the morning. Evaluation Evaluation Variability: Average (6-10) monitor accelerations: Present monitor decelerations: Absent Contraction Frequency (minutes): 3 Uterine Contraction Intensity: Mild Category of Tracing: I Cervical dilation (cm): 2 Cervical effacement (%): 75 station: -3 Laboratory results: Laboratory Tests 05/09/20 05/09/20 05/09/20 18:20 18:20 18:50 WBC 11.4 H RBC 4.06 Hgb 12.4 Hct 36.6 MCV 90.2 MCH 30.5 MCHC 33.9 RDW 14.0 Plt Count 261 Neut % (Auto) 73.4 Lymph % (Auto) 15.6 L [place] % (Auto) 8.8 Eos % (Auto) 1.4 L Baso % (Auto) 0.8 Neut # (Auto) 8400 H Lymph # (Auto) 1800 [place] # (Auto) 1000 H Eos # (Auto) 200 Baso # (Auto) 100 COVID-19 PCR Negative Blood Type B Positive Antibody Screen Negative Non-invasive Membranes Rupture Test: negative [facility] Medical History Encounter for IUD removal (Inactive) depression (Resolved ~2015) Spontaneous vaginal delivery (Inactive) Surgical History Status post ORIF of fracture of ankle (Resolved 09/02/18) Family History Grandmother No problems noted. 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) Smoking Status: Current every day smoker second hand exposure: Yes substance use type: does not use Meds Home Medications and Allergies Home Medications Medication Instructions Recorded Confirmed Type prenat.vits,taylor,yoh-zntm-bsydv 1 tab PO DAILY 10/03/19 05/09/20 History Claritin 1 tab PO PRN PRN 05/09/20 05/09/20 History Allergies Allergy/AdvReac Type Severity Reaction Status Date / Time No Known Drug Allergies Allergy Verified 05/07/20 08:51 Review of Systems Review of Systems ROS: Yes All systems reviewed with the patient and are negative except as otherwise documented Exam Const General: cooperative and healthy appearing HENMT Head: normal to inspection Ears: hearing grossly normal bilaterally Nose: external nose normal Face and sinus: normal facial exam Mouth: oral mucosae normal, lip normal, tongue normal and moist mucous membranes Teeth and gingiva: dentition normal Throat: posterior oropharynx normal Eyes General: appearance normal, both eyes and all related structures Neck Neck: normal visual inspection and full ROM Chest Chest: normal inspection of the chest and normal palpation of entire chest wall Breast inspection: normal inspection of the breasts and normal inspection of the axillae Breast Palpation: normal palpation of the breasts and normal palpation of the axillae Resp Effort & Inspection: normal respiratory effort Auscultation: clear to auscultation bilaterally Cardio Palpation: normal PMI Rate: regular rate Rhythm: regular rhythm Heart Sounds: S1 normal and S2 normal GI Inspection: normal to inspection Palpation: soft and no hepatosplenomegaly Percussion: normal to percussion Auscultation: normal bowel sounds External Female Exam: normal external appearance and normal appearance of the urethra Bimanual Exam- Adnexa, other: normal adnexae OB/External & Speculum: external exam normal Manual OB Exam: dilated 2, effaced 75% and station -2 Uterus Location (Fundal Height): 38 Estimated Weight (lbs): 8 Back/Spine/Pelvis Thoracic/Lumbar Spine: thoracic and lumbar spine normal to inspection Skin General: no rashes or lesions noted Neuro General: patient alert, patient oriented x3, tone normal and moves all extremities Cognition: normal cognition Speech: speech normal Gait: normal gait Motor: muscle tone normal throughout Sensory Exam: no sensory deficits noted Extrem General: normal to inspection and normal exam except as noted Psych Appearance: grossly normal and well kempt Mental Status: mental status grossly normal Speech and Movement: speech and movement normal Objective Labs Result Diagrams: 05/09/20 18:20 Labs: Laboratory Results - last 24 hr 05/09/20 05/09/20 05/09/20 18:20 18:20 18:50 WBC 11.4 H RBC 4.06 Hgb 12.4 Hct 36.6 MCV 90.2 MCH 30.5 MCHC 33.9 RDW 14.0 Plt Count 261 Neut % (Auto) 73.4 Lymph % (Auto) 15.6 L [place] % (Auto) 8.8 Eos % (Auto) 1.4 L Baso % (Auto) 0.8 Neut # (Auto) 8400 H Lymph # (Auto) 1800 [place] # (Auto) 1000 H Eos # (Auto) 200 Baso # (Auto) 100 COVID-19 PCR Negative Blood Type B Positive Antibody Screen Negative Assessment and Plan Assessment and Plan Assessment and Plan narrative: Term intrauterine with good dates Status post cervical ripening Desires induction for maternal discomfort Plan is for Pitocin induction and artificial rupture membranes
--- NOTE | 2020-05-10 08:08 | PM.OBPNLAB ---
Date/Time Date Patient Seen: 05/10/20 Time Patient Seen: 08:08 Pain Control Pain control: tolerating well Pelvic Exam Dilation (cm): 2 Effacement (%): 75 station: -2 Amniotic membrane status: Bulging Comments: Artificial rupture of membranes with clear fluid and no heart tone deceleration Contractions Date/Time contractions began: 629 Contractions on admission: regular Monitor mode: External Pitocin rate (mU/min): 4 Contraction frequency (min): 3 Contraction duration (min): 60 Contraction pattern: Regular Contraction phase: Resting Contraction intensity: Moderate Status status: Category l Heart Rate Baseline: 130 Monitor Accelerations: Present Monitor Decelerations: Absent Monitor Variability: Moderate Assessment and Plan Assessment: active labor Plan: continuous present management
[2020-05-10] MEDS: FENT 2MCG/ML BUPIV 0.125% EPI 200 MCG/100 ML PLAST..BAG 6 MCG EPIDURAL (09:15)
--- NOTE | 2020-05-10 09:34 | P.PCN_ITS ---
Regional [facility] Pre-procedure Procedure: Continuous Lumbar Epidural for L&D Attending OB provider: Dru Pisano PMH/ROS narrative: term labor, no complications. Hx: No personal or family history of anesthesia problems. ASA Class: II Labs: Hct 36.6 % (36-46) 05/09/20 18:20 Plt Count 261 X10^3/uL (150-400) 05/09/20 18:20 Medications: Current Medications Generic Name Dose Route Start Last Admin Trade Name Freq PRN Reason Stop Dose Admin Calcium Carbonate 500 mg 05/09/20 19:17 Tums PO Q2HR PRN Dyspepsia Diphenhydramine HCl 25 mg 05/10/20 08:34 Benadryl IV Q10M PRN Pruritis Fentanyl 100 mcg 05/09/20 19:17 Sublimaze IV Q1H PRN Pain, Severe (7-10) Lactated Ringer's 1,000 mls @ 100 mls/hr 05/09/20 19:30 05/10/20 09:15 Lactated Ringers IV 100 mls/hr CONT HARRIS Administration Oxytocin/Lactated Ringer's 30 unit in 500 mls @ 3 mls/hr 05/09/20 19:30 05/10/20 06:02 Oxytocin Premix IV 2 milliunit/min TITRATE HARRIS 2 mls/hr Administration Protocol 3 MILLIUNIT/MIN Lactated Ringer's 1,000 mls @ 100 mls/hr 05/10/20 08:45 Lactated Ringers IV CONT HARRIS FENT 2MCG/ML BUPIV 0.125% EPI 200 mcg in 100 mls @ 6 mls/hr 05/10/20 08:45 Fentanyl/Bupiv/Ns 2mcg/Ml - 0.125% EPIDURAL CONT HARRIS Misoprostol 25 mcg 05/09/20 21:00 05/09/20 19:35 Cytotec VAG 25 mcg Q4HR HARRIS Administration Naloxone HCl 0.2 mg 05/09/20 19:17 Narcan IV Q2MIN PRN Opiate Reversal Ondansetron HCl 4 mg 05/09/20 19:17 Zofran IV Q4HR PRN Nausea And Vomiting Allergies: Allergies Allergy/AdvReac Type Severity Reaction Status Date / Time No Known Drug Allergies Allergy Verified 05/07/20 08:51 Procedure Insertion date: 07/24/20 Insertion time: 08:45 Prep/Local: betadine x3 Interspace: L2-3 Patient position: sitting Needle: 18 gauge Hustead (CSE: 27g Pencan through Hustead, clear CSF, 1mL 0.25% MPF bupiv) Loss of resistance with: saline HIRA at (cm): 5 Catheter placed at SKIN (cm): 10 Catheter in SPACE (cm): 5 Insertion: No Blood, No Paresthesia with injection and No Test dose reaction Initial Medications TEST DOSE time: 09:02 TEST DOSE: 1.5% lidocaine with epinephrine 1:200k (mL): 3 BOLUS DOSE time: 09:05 BOLUS DOSE (mL): 3 BOLUS DOSE med: other (infusate) Infusion INFUSION: 0.125% bupivacaine and with fentanyl 2 mcg/mL Initial rate (mL/hr): 6 Subsequent interventions: multiple passes (+) transient paresthesias with spinal needle advancement. Needle withdrawn, repositioned. No paresthesia with injecti on in final placement. Post-procedure Anesthesia time START: 08:30 Anesthesia time END: 10:55 Post-procedure Anesthesia Assessment: Yes CV function: HR/BP stable, Yes Resp function: RR/sat/airway adequate, Yes Post-op hydration adequate, Yes Pain control adequate, Yes Nausea & vomiting absent, Yes Mental status appropriate and No Anesthesia complications
--- NOTE | 2020-05-10 11:01 | PM.OBPRVD ---
Labor & Delivery Delivery date: 05/10/20 Intrapartal events: None Cervical ripening method: per misoprostal protocol Induction method: per pitocin protocol Delivery augmentation: rupture of membranes Delivery monitor: external FHT and external uterine Route of delivery: L&D Laceration Description: None Estimated blood loss (mL): 300 Complications: None Narrative: Patient is 24-year-old white female three para two at term. Patient was admitted for elective induction labor. She received misoprostol cervical ripening. Membranes were ruptured Pitocin was begun. An epidural was placed. Patient made rapid progress to complete and delivered a live-born female with scores of eight at 1 minute nine at 5 minutes in good condition. There was a tight nuchal cord which was clamped and incised. There are no cervical or vaginal lacerations. There are no perineal lacerations. Estimated blood loss 300 cc. Plan for aftercare: Routine aftercare
[2020-05-10] MEDS: IBUPROFEN 600 MG TABLET PO ×2 (12:55→18:59)
[2020-05-10] MEDS: ACETAMINOPHEN 325 MG TABLET 650 MG PO ×2 (14:11→20:23)
[2020-05-10] MEDS: LANOLIN OINT 7 GM 1 APPLIC TOP (16:13)
[2020-05-11] MEDS: IBUPROFEN 600 MG TABLET PO ×2 (00:59→07:18)
[2020-05-11] MEDS: ACETAMINOPHEN 325 MG TABLET 650 MG PO (02:26)
[2020-05-11 07:00] LABS: Hematocrit 31.6 % (36-46); Hemoglobin 10.9 g/dL (12.0-16.0)
[2020-05-11] MEDS: FERROUS GLUCONATE 324 MG TABLET PO (07:19)
[2020-05-11] MEDS: DOCUSATE 100 MG CAPSULE PO (07:19)
[2020-05-11] MEDS: PRENATAL VIT,CALC/IRON/FOLIC 1 TABLET 1 TAB PO (07:19)
[2020-05-11 07:49] VITALS: BP 116/76; PULSE 62; RESP 16; TEMP 36.9
--- NOTE | 2020-05-11 09:08 | P.DS_ITS ---
Discharge Providers Provider Date of admission: 05/09/20 18:12 Discharge Date: 05/11/20 Primary care physician: Dru Pisano MD Consults: 05/11/20 11:05 Consult to [employer] Consultant Routine Comment: Discharge provider: Dru Pisano MD Summary Hospital Course Date Patient Seen: 05/11/20 Time Patient Seen: 09:09 Procedures: Term intrauterine Induction of labor Epidural anesthesia Spontaneous vaginal delivery Hospital Course: The patient is a 24-year-old white female three now para three who was admitted for elective induction of labor. Patient received misoprostol cervical ripening. Patient then was induced with Pitocin with artificial rupture the membranes. An epidural was placed with good results. Patient made rapid progress to complete and delivered spontaneously a live born female infant with scores of eight at 1 minutes and nine at 5 minutes in good condition. There were no cervical vaginal perineal tears. Estimated blood loss was 300 cc. Post delivery the patient did well. She remained afebrile with stable vital signs and was progressively ambulated. She was taking p.o. well. Peripartum Data Infant Delivery Method: Natural Vaginal Laceration description: None complications: none Status at Discharge Cognitive/behavioral status at discharge: oriented Functional status at discharge: independent ambulation Overall status at discharge: patient is progressing back to baseline Time Spent with Patient Time attestation: Total time spent providing and/or coordinating discharge services: Time spent: Less than 30 minutes Objective Labs Result Diagrams: 05/11/20 06:50 Labs: Laboratory Results - last 24 hr 05/11/20 06:50 Hgb 10.9 L Hct 31.6 L Exam Vital Signs (past 8 hours): - 05/11/20 07:49 Temperature 98.5 F Pulse Rate 62 Respiratory Rate 16 Blood Pressure 116/76 Narrative Exam Narrative: Fundus U minus three Lochia scant Some soreness to epidural area. Patient had four attempts before success. No hematomas or erythema Discharge Plan Discharge Plan Patient Disposition: Home Discharge orders & Medications Prescriptions: New oxycodone 5 mg Tablet 5 mg PO Q4HR PRN (Reason: Pain, Moderate (4-6)) Qty: 10 RF: 0 ferrous gluconate 324 mg (38 mg iron) Tablet 324 mg PO DAILY Qty: 30 RF: 0 ibuprofen 600 mg Tablet 600 mg PO Q6HR PRN (Reason: Pain, Mild (1-3)) Qty: 20 RF: 0 docusate sodium [DOK] 100 mg Capsule 100 mg PO DAILY Qty: 14 RF: 0 Dermoplast (with menthol) 20-0.5 % Aerosol 1 spray topical Q1HR PRN (Reason: perineal pain) Qty: 1 RF: 0 Ekp-V-Kjejmn Cream 1 applic topical PRN PRN (Reason: Tenderness) Qty: 1 RF: 0 Continued prenat.vits,taylor,[id number] Tablet 1 tab PO DAILY RF: 0 Claritin 1 tab PO PRN PRN (Reason: Allergy Symptoms) RF: 0 Follow up/Referrals: Yvonne Coyle MD [Physician] - 06/21/20 2:00 pm Dru Pisano MD [Primary Care Provider] - Discharge Health Status Multidrug resistant organism: No MDRO Diet/Activity/Treatments Diet: Diet as Tolerated Skin/Wound/Dressing Care Report to your healthcare provider any signs of infection, such as:: chills, fever, night sweats, unusual drainage and unusual redness Other wound treatment: Keep perineal area clean and dry Visit Report/Discharge Packet Instructions: DI for Prescription Opioid Use Stand Alone Forms: Discharge: Care Visit Report Forms: Patient Portal/API, Stroke Signs & Symptoms Discharge Data Primary Care Provider: Dru Pisano
== END 2020-05-11 10:47 | disposition home or self-care (01) | DRG 560 ==
DX: O26.893 Other specified pregnancy related conditions, third trimester (principal); Z3A.40 40 weeks gestation of pregnancy; Z37.0 Single live birth; O69.1XX0 Labor and delivery complicated by cord around neck, with compression, not applicable or unspecified; Z11.59 Encounter for screening for other viral diseases; O99.333 Smoking (tobacco) complicating pregnancy, third trimester; F17.210 Nicotine dependence, cigarettes, uncomplicated
CPT/HCPCS: 01967; 36415; 59050; 59200; 59409; 85014; 85018; 85025; 86850; 86900; 86901; 87635; G0379; J2590

== ENCOUNTER 2020-07-26 19:27 | Emergency (ER) | payer OTHER, MEDICAID, SELFPAY ==
[2020-07-26 19:29] VITALS: PULSE 99; RESP 20; TEMP 37; O2SAT 100
[2020-07-26 21:11] VITALS: BP 134/62
--- NOTE | 2020-07-26 22:16 | ED_ITS ---
HPI - URI/Sore Throat General Chief Complaint: Upper Respiratory Symptoms Stated Complaint: WHITE SPOTS ON BACK OF THROAT Time Seen by Provider: 07/26/20 22:11 Source: patient Mode of arrival: Ambulatory Limitations: no limitations History of Present Illness HPI Narrative: 24-year-old now former smoker breast-feeding mother presents with sore throat and complaints of abnormal findings on the right side of her throat. She began noticing some dryness and a tickle in the back of her throat 3 days ago and attributed that to smoking to many cigarettes that day. She has had a low-grade fever general malaise and increasingly sore throat. She has noted cervical adenopathy. No nausea, vomiting, rhinorrhea, chest pain, cough, palpitations, dyspnea, lower extremity edema, abdominal pain, diarrhea or skin changes. Related Data Home Medications Medication Instructions Recorded Confirmed prenat.vits,taylor,[id number] 1 tab PO DAILY 10/03/19 06/28/20 Claritin 1 tab PO PRN PRN 05/09/20 06/28/20 Previous Rx's Medication Instructions Recorded docusate sodium [DOK] 100 mg PO DAILY #14 cap 05/11/20 ferrous gluconate 324 mg PO DAILY #30 tab 05/11/20 amoxicillin 500 mg PO TID #21 tab 07/26/20 Allergies Allergy/AdvReac Type Severity Reaction Status Date / Time No Known Drug Allergies Allergy Verified 07/26/20 19:33 Review of Systems Review of Systems Narrative: Remainder of review of systems including constitutional, ENT, cardiovascular, respiratory, GI, , musculoskeletal, skin, neurologic and psychiatric systems reviewed and are unremarkable except as noted in HPI. Patient History Medical History Encounter for IUD removal (Inactive) depression (Resolved ~2015) Spontaneous vaginal delivery (Inactive) Surgical History Status post ORIF of fracture of ankle (Resolved 09/02/18) Family History Grandmother No problems noted. 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 Notable anterior cervical adenopathy right greater than left Respiratory: Able to speak in full sentences, no obvious respiratory distress Skin: No obvious rashes, warm and dry Neurologic: Grossly intact no obvious asymmetries or abnormalities Psych, appropriate insight and affect, cooperative Initial Vital Signs Initial Vital Signs: Vital Signs Temperature 98.6 F 07/26/20 19:29 Pulse Rate 99 H 07/26/20 19:29 Respiratory Rate 20 07/26/20 19:29 Pulse Oximetry 100 07/26/20 19:29 Course Orders Ordered: ED Orders 07/26/20 19:35 Throat Culture Stat Discontinued Medications Amoxicillin (Trimox) 500 mg PO NOW ONE Stop: 07/26/20 22:17 Last Admin: 07/26/20 22:28 Dose: 500 mg Documented by: CM Vital Signs Vital signs: Vital Signs - 8 hr 07/26/20 19:29 07/26/20 21:11 07/26/20 22:36 Temperature 98.6 F Pulse Rate 99 H 86 Respiratory Rate 20 14 Blood Pressure 134/62 116/68 Pulse Oximetry 100 99 MDM - URI/Sore Throat Medical Records Attestation: I reviewed the patient's medical records. Lab Data Labs: Point of Care Testing Rapid Strep A Negative MDM Narrative Medical decision making narrative: 24-year-old woman with what looks like an infection of the right tonsil that does not seem to be affecting the left tonsil. No obvious peritonsillar cellulitis or abscess. Low-grade fevers an adenopathy or consistent with a bacterial infection as well. Treat her with amoxicillin and encourage her to follow-up if symptoms are not improving. Had an excellent discussion regarding her cigarette smoking, she has been trying to stop and has a as even more incentive. She states that she has not had a cigarette for 3 days and this episode has frightened her enough that she think she will be able to avoid having another cigarette. Safe for home discharge Discharge Plan Departure Patient Disposition: Home Clinical Impression: Pharyngitis Qualifiers: Pharyngitis/tonsillitis etiology: unspecified etiology Qualified Code(s): J02.9 - Acute pharyngitis, unspecified Discharge Date/Time: 07/26/20 22:37 Instructions: DI for Pharyngitis/Tonsillopharyngitis -- Adult Activity Restrictions/Additional Instructions: Thank you for coming in today You do have what looks like a significant bacterial infection just on the right tonsil. Your rapid strep test in the emergency room was negative however with the clinical appearance of that tonsil the redness around it, your temperature and her swollen lymph nodes the probability of a bacterial infection is quite high. I am going to put you on amoxicillin 3 times a day for the next week. This is safe while you were breast-feeding. I have electronically transmitted this prescription to [facility] for you to chicken picker tomorrow I am very excited to hear that you have not had a cigarette for the last 3 days and are planning on no more cigarettes from here forward. That is a healthy choice for you and an even health your choice for all 3 of your kids If you feel that you are getting worse or are clearly not better within a week you need to be seen and re-evaluated Using 400 mg of ibuprofen (2 hcin-wur-mnldemw pills) and 1 Tylenol every 6 hours can be very helpful in controlling pain. I wish you the best Prescriptions: New amoxicillin 500 mg tablet 500 mg PO TID Qty: 21 RF: 0 No Action prenat.vits,taylor,[id number] Tablet 1 tab PO DAILY RF: 0 Claritin 1 tab PO PRN PRN (Reason: Allergy Symptoms) RF: 0 docusate sodium [DOK] 100 mg Capsule 100 mg PO DAILY Qty: 14 RF: 0 ferrous gluconate 324 mg (38 mg iron) Tablet 324 mg PO DAILY Qty: 30 RF: 0 Referrals: Mala Dumont DO [Primary Care Provider] -
[2020-07-26] MEDS: AMOXICILLIN 250 MG CAPSULE 500 MG PO (22:28)
[2020-07-26 22:36] VITALS: BP 116/68; PULSE 86; RESP 14; O2SAT 99
== END 2020-07-26 22:37 | disposition home or self-care (01) ==
PROVIDERS: Emergency Provider Emergency Medicine; PCP Family Medicine
DX: J02.9 Acute pharyngitis, unspecified (principal)
CPT/HCPCS: 87070; 87077; 87147; 87880; 99283

== ENCOUNTER 2021-04-22 10:14 | Emergency (ER) | payer OTHER, MEDICAID, SELFPAY ==
[2021-04-22 10:29] VITALS: BP 116/68; PULSE 65; RESP 15; TEMP 36.4; O2SAT 100
--- NOTE | 2021-04-22 10:33 | DI.RAD.S_ITS ---
PROCEDURE: XR ANKLE LT MIN 3V INDICATIONS: twisted left ankle, h/o surgery / pins in that ankle TECHNIQUE: 3 views of the ankle were acquired. COMPARISON: [facility], CR, XR ANKLE 3+ VIEWS LEFT, 05/27/2020, 15:46. FINDINGS: Bones: Distal fibula plate and screw fixation is stable. Medial malleolus screw. Hardware is stable. No hardware fracture. No periscrew lucency. No fractures or dislocations. Ankle mortise is normally aligned. No suspicious bony lesions. Soft tissues: No tibiotalar joint effusion. Achilles tendon appears normal. IMPRESSION: No acute osseous abnormality. Stable fixation hardware. Dictated by: Jerome Foley M.D. on 04/22/2021 at 10:54 Approved by: Jerome Foley M.D. on 04/22/2021 at 10:56
--- NOTE | 2021-04-22 14:18 | ED_ITS ---
HPI - Extremity Injury (Lower) General Chief Complaint: Extremity Injury, Lower Stated Complaint: rolled left ankle /, plate w/7 pins in l ankle Time Seen by Provider: 04/22/21 13:44 History of Present Illness HPI Narrative: 25-year-old female daily smoker with prior orthopedic injuries presents with a chief complaint of a left ankle injury on Wednesday. She states she was walking and rolled her ankle and felt a pop. She now has pain with ambulation in any range of motion. She has a prior history of surgical repair with plates and pins and is concerned that perhaps she has damaged something. She denies any numbness, tingling or weakness. She is otherwise well and free of complaint Related Data Home Medications Medication Instructions Recorded Confirmed prenat.vits,taylor,[id number] 1 tab PO DAILY 10/03/19 11/15/20 Claritin 1 tab PO PRN PRN 05/09/20 11/15/20 Previous Rx's Medication Instructions Recorded diclofenac sodium 1 % topical gel 2 g TOPICAL QID #100 g 11/15/20 triamcinolone acetonide 0.1 % 1 applic TOPICAL BID #30 g 11/15/20 topical cream Allergies Allergy/AdvReac Type Severity Reaction Status Date / Time No Known Drug Allergies Allergy Verified 04/22/21 10:33 Review of Systems Review of Systems Narrative: GENERAL: Denies chills, fatigue, malaise, fever, sweats. HEENT: Denies sinus pain, ear pain, sore throat, difficulty swallowing, dizziness. RESPIRATORY: Denies dyspnea, cough, wheezing, hemoptysis, sputum. CARDIOVASCULAR: Denies chest pain, palpitations, orthopnea, edema, GASTROINTESTINAL: Denies nausea, vomiting, abdominal pain, diarrhea, constipation, melena. : Denies dysuria, frequency, incontinence, hematuria, urinary retention. MUSCULOSKELETAL: See HPI SKIN: Denies rash, skin lesions, or other NEUROLOGIC: Denies weakness, headache, numbness, change in speech, confusion, seizures, incoordination. PSYCHIATRIC: No concerning psychosocial issues. 12 point review of systems is negative except for those stated above Patient History Medical History Contact dermatitis Encounter for IUD removal Low back pain depression (~2015) Spontaneous vaginal delivery Surgical History Status post ORIF of fracture of ankle (09/02/18) Family History Grandmother No problems noted. 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 Extraoccular muscles are intact bilaterally. There is no subconjunctival hemorrhage or exudate. CHEST: Lungs are clear to auscultation bilaterally and free of wheezes, rales, or rhonchi. Heart rate is regular rhythm, there are no murmurs, clicks, rubs, or gallops. There is no chest wall tenderness. ABD: Abdomen is soft and nontender. There is no guarding or rebound. Bowel sounds are normal in all 4 quadrants. There is no mass or organomegaly. EXT: Full but painful range of motion of the left ankle with mild effusion and some ecchymoses and distal to the lateral malleolus. Her injury is closed, isolated will neurovascularly intact. SKIN: Warm, pink, and dry. No erythema or rash Initial Vital Signs Initial Vital Signs: Vital Signs Temperature 97.6 F 04/22/21 10:29 Pulse Rate 65 04/22/21 10:29 Respiratory Rate 15 04/22/21 10:29 Blood Pressure 116/68 04/22/21 10:29 Pulse Oximetry 100 04/22/21 10:29 Course Orders Ordered: ED Orders 04/22/21 10:33 XR ankle LT min 3V Stat Vital Signs Vital signs: Vital Signs - 8 hr 04/22/21 10:29 Temperature 97.6 F Pulse Rate 65 Respiratory Rate 15 Blood Pressure 116/68 Pulse Oximetry 100 MDM - Extremity Injury (Lower) Imaging Data Extremity x-ray #1: Radiologist's Impression: [facility] [place] [id number] ReportSigned Patient: Minnie Lorenz RMR#: [id number]: [id number]:[id number]/Sex: 25 / FDate of Service: 04/22/21Loc: EDAccession Number: [id number] Procedure: XR ankle LT min 3V Ordering Provider: Shannan Styles D.O. PROCEDURE: XR ANKLE LT MIN 3V INDICATIONS: twisted left ankle, h/o surgery / pins in that ankle TECHNIQUE: 3 views of the ankle were acquired. COMPARISON: [facility], CR, XR ANKLE 3+ VIEWS LEFT, 05/27/2020, 15:46. FINDINGS: Bones: Distal fibula plate and screw fixation is stable. Medial malleolus screw. Hardware is stable. No hardware fracture. No periscrew lucency. No fractures or dislocations. Ankle mortise is normally aligned. No suspicious bony lesions. Soft tissues: No tibiotalar joint effusion. Achilles tendon appears normal. IMPRESSION: No acute osseous abnormality. Stable fixation hardware. Dictated by: Jerome Foley M.D. on 04/22/2021 at 10:54 Approved by: Jerome Foley M.D. on 04/22/2021 at 10:56 Discharge Plan Departure Patient Disposition: Home Clinical Impression: Ankle sprain and strain Activity Restrictions/Additional Instructions: *You have been diagnosed with [left ankle sprain, exam imaging is negative for fracture or hardware disruption] *What to do: *Please continue to take your regular medications as directed. [ ] New medication prescriptions sent to your pharmacy: [ ] [ ] New medication written as a paper prescription [ x] No new medications given *Please follow up with your primary care provider in 2-3 days, call for an appointment. Let them know you were seen in the Emergency Department and that we ask that you be seen in follow up. We will electronically transmit a record of today's note if your PCP is in our system *If you do not have a primary care provider please contact the [facility] Resource line at [phone]. They will ask some questions about your medical history and help get you set up with a doctor in the community. *Return to Emergency Department if you should have any new, worsening or concerning symptoms, such as [fever greater than 101 F, shaking chills, worsening pain, persistent vomiting or other bothersome symptoms] Prescriptions: No Action prenat.vits,tyalor,[id number] Tablet 1 tab PO DAILY RF: 0 triamcinolone acetonide 0.1 % cream 1 applic topical BID Qty: 30 RF: 1 diclofenac sodium 1 % gel 2 g topical QID Qty: 100 RF: 0 Claritin 1 tab PO PRN PRN (Reason: Allergy Symptoms) RF: 0 Referrals: Mala Dumont DO [Primary Care Provider] -
== END 2021-04-22 14:25 | disposition home or self-care (01) ==
PROVIDERS: Emergency Provider Emergency Medicine; PCP Family Medicine
DX: S93.402A Sprain of unspecified ligament of left ankle, initial encounter (principal); S96.912A Strain of unspecified muscle and tendon at ankle and foot level, left foot, initial encounter; X50.1XXA Overexertion from prolonged static or awkward postures, initial encounter
CPT/HCPCS: 73610; 99283; 99284

== ENCOUNTER 2021-11-17 08:29 | Emergency (ER) | payer OTHER, MEDICAID, SELFPAY ==
--- NOTE | 2021-11-17 08:35 | ED.GENADULT ---
HPI - General Adult General Stated complaint: Face is swollen on right side x2 days Time Seen by Provider: 11/17/21 08:35 History of Present Illness HPI narrative: Otherwise healthy 25-year-old woman presents with increasing right jaw pain for the last 2-3 days. She is noticing increasing swelling this morning comes in for further evaluation. She is having some mild pain from the swelling but not severe dental pain. She is aware that tooth number 30 is fractured but has not been bothering her until recently. She typically is seen at [facility] and has call to schedule an appointment none of which are available for a number of weeks. She describes no fever, drainage, headaches, neck pain, vomiting or diarrhea Related Data Home Medications Medication Instructions Recorded Confirmed prenat.vits,taylor,[id number] 1 tab PO DAILY 10/03/19 11/15/20 Claritin 1 tab PO PRN PRN 05/09/20 11/15/20 Previous Rx's Medication Instructions Recorded diclofenac sodium 1 % topical gel 2 g TOPICAL QID #100 g 11/15/20 triamcinolone acetonide 0.1 % 1 applic TOPICAL BID #30 g 11/15/20 topical cream amoxicillin 500 mg capsule 500 mg PO TID #21 cap 11/17/21 Allergies Allergy/AdvReac Type Severity Reaction Status Date / Time No Known Drug Allergies Allergy Verified 04/22/21 10:33 Review of Systems Review of Systems Narrative: Remainder of complete review of systems is otherwise unremarkable except for that included in the HPI. Patient History Medical History Contact dermatitis Encounter for IUD removal Low back pain depression (~2015) Spontaneous vaginal delivery Surgical History Status post ORIF of fracture of ankle (09/02/18) Family History Grandmother No problems noted. 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 Minor anterior cervical adenopathy on the right side. The medial posterior cusp of tooth number 30 is fractured. Respiratory: Able to speak in full sentences, no obvious respiratory distress Skin: No obvious rashes, warm and dry Neurologic: Grossly intact no obvious asymmetries or abnormalities Psych: appropriate insight and affect, cooperative Medical Decision Making [facility] Narrative Medical decision making narrative: 25-year-old woman with fractured tooth and now dental infection causing some facial swelling. There is no abscess and no drainage. No signs of systemic disease. Will place her on amoxicillin and encouraged her to follow-up with [facility] soon as possible for definitive treatment. Questions are answered and she is safe for home discharge Discharge Plan Departure Patient Disposition: Home Clinical Impression: Dental infection Instructions: DI for Dental Pain Activity Restrictions/Additional Instructions: Thank you for coming in today The back part of your 1st molar is broken off and I suspect that has opened up the area to infection. The swelling to the outside of your jaw is clearly infection related. I am going to put you on amoxicillin for 7 days to treat the infection however you do need to treat the underlying problem. The tooth may likely need a root canal or and extraction. Please call your dentist to let them know that your in the ER, you are on antibiotics and see if they have any more urgent appointment. If the 1st appointment is not for 3-4 weeks, please still schedule that appointment The prescription was electronically transmitted to [facility] Using 400 mg of ibuprofen (2 [id number] pills) and 1 Tylenol every 6 hours can be very helpful in controlling pain. If you feel that you are getting worse, please return to the ER Prescriptions: New amoxicillin 500 mg capsule 500 mg PO TID Qty: 21 0RF No Action prenat.vits,taylor,[id number] Tablet 1 tab PO DAILY 0RF triamcinolone acetonide 0.1 % cream 1 applic topical BID Qty: 30 1RF Rx Instructions: use sparingly on hands BID for up to 2 weeks, keep away from children and pets diclofenac sodium 1 % gel 2 g topical QID Qty: 100 0RF Rx Instructions: apply to lower back Claritin 1 tab PO PRN PRN (Reason: Allergy Symptoms) 0RF Referrals: Mala Dumont DO [Primary Care Provider] -
[2021-11-17 08:38] VITALS: BP 115/74; PULSE 88; RESP 18; TEMP 36.6; O2SAT 100; BMI 30.2
== END 2021-11-17 08:48 | disposition home or self-care (01) ==
PROVIDERS: Emergency Provider Emergency Medicine; PCP Family Medicine
DX: K04.7 Periapical abscess without sinus (principal); Z87.891 Personal history of nicotine dependence
CPT/HCPCS: 99281

== ENCOUNTER 2022-02-28 16:03 | Emergency (ER) | payer OTHER, MEDICAID, SELFPAY ==
[2022-02-28 16:14] VITALS: BP 104/63; PULSE 60; RESP 17; TEMP 36.7; O2SAT 100; BMI 30.7
--- NOTE | 2022-02-28 16:32 | ED_ITS ---
HPI - General Adult General Chief complaint: Dental/Oral Stated complaint: Tooth sweeling Time Seen by Provider: 02/28/22 16:29 Source: patient Mode of arrival: Ambulatory History of Present Illness HPI narrative: 26-year-old female who has a right lower broken tooth. Has had an infection in the past. Has seen dental. Has been on antibiotics in the past. Cannot get in to see her dentist until the end of the month and over the past day has developed swelling in the right lower jaw with discomfort. No fevers. No problems breathing. No problems tolerating secretions. Related Data Home Medications Medication Instructions Recorded Confirmed prenat.vits,taylor,[id number] 1 tab PO DAILY 10/03/19 11/15/20 Claritin 1 tab PO PRN PRN 05/09/20 11/15/20 Previous Rx's Medication Instructions Recorded diclofenac sodium 1 % topical gel 2 g TOPICAL QID #100 g 11/15/20 triamcinolone acetonide 0.1 % 1 applic TOPICAL BID #30 g 11/15/20 topical cream amoxicillin 500 mg capsule 500 mg PO TID #21 cap 11/17/21 amoxicillin 500 mg tablet 500 mg PO TID 7 Days #21 tab 02/28/22 Allergies Allergy/AdvReac Type Severity Reaction Status Date / Time No Known Drug Allergies Allergy Verified 04/22/21 10:33 Review of Systems Constitutional Constitutional: Reports system reviewed and no additional complaints, except as documented ENT Ears, Nose, Mouth, and Throat: Reports system reviewed and no additional complaints, except as documented Respiratory Respiratory: Reports system reviewed and no additional complaints, except as documented Integumentary/Breasts Skin/Breast: Reports system reviewed and no additional complaints, except as documented Hematologic/Lymphatic On Anticoagulants: No Patient History Medical History Contact dermatitis Encounter for IUD removal Low back pain depression (~2015) Spontaneous vaginal delivery Surgical History Status post ORIF of fracture of ankle (09/02/18) Family History Grandmother No problems noted. 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) Smoking Status: Former smoker second hand exposure: Yes substance use type: does not use Smoking Status: Former smoker tobacco type: vaping alcohol intake frequency: other Substance Use Type: marijuana Exam Initial Vital Signs Initial Vital Signs: Vital Signs Temperature 98.1 F 02/28/22 16:14 Pulse Rate 60 02/28/22 16:14 Respiratory Rate 17 02/28/22 16:14 Blood Pressure 104/63 02/28/22 16:14 Pulse Oximetry 100 02/28/22 16:14 Const General: cooperative and healthy appearing HENMT Head: normal to inspection and normocephalic Ears: TM's normal bilaterally Other HENMT:: Swelling along the right mandibular ridge. Does have a fractured right lower 1st molar. No definitive abscess seen. Neck Lymphatic: No lymphadenopathy Resp Effort & Inspection: normal respiratory effort Auscultation: clear to auscultation bilaterally Skin General: no rashes or lesions noted Course Vital Signs Vital signs: Vital Signs - 8 hr 02/28/22 16:14 Temperature 98.1 F Pulse Rate 60 Respiratory Rate 17 Blood Pressure 104/63 Pulse Oximetry 100 Medical Decision Making [facility] Narrative Medical decision making narrative: Patient does have a obvious fractured tooth and swelling along the right mandibular ridge which is consistent with an infection. There are no skin changes over the area. No respiratory distress. No drainable abscess seen intraoral. Will place the patient on antibiotics. She states amoxicillin has helped her in the past. She was given return precautions and follow-up instructions. She expressed understanding and agreement. Discharge Plan Departure Patient Disposition: Home Clinical Impression: Dental abscess Instructions: Tooth Abscess Activity Restrictions/Additional Instructions: I do recommend that you take the antibiotic as directed. He will ultimately need to be seen by a dentist. Return to the emergency department for any new or worsening symptoms. Prescriptions: New amoxicillin 500 mg tablet 500 mg PO TID 7 Days Qty: 21 0RF No Action prenat.vits,taylor,[id number] Tablet 1 tab PO DAILY 0RF triamcinolone acetonide 0.1 % cream 1 applic topical BID Qty: 30 1RF Rx Instructions: use sparingly on hands BID for up to 2 weeks, keep away from children and pets diclofenac sodium 1 % gel 2 g topical QID Qty: 100 0RF Rx Instructions: apply to lower back amoxicillin 500 mg capsule 500 mg PO TID Qty: 21 0RF Claritin 1 tab PO PRN PRN (Reason: Allergy Symptoms) 0RF Referrals: Mala Dumont DO [Primary Care Provider] -
== END 2022-02-28 16:39 | disposition home or self-care (01) ==
PROVIDERS: Emergency Provider Emergency Medicine; PCP Family Medicine
DX: K04.7 Periapical abscess without sinus (principal)
CPT/HCPCS: 99281

== ENCOUNTER → 2024-01-11 08:16 | Outpatient (CLI) | payer OTHER, MEDICAID, SELFPAY ==
[2024-01-11 10:01] LABS: Add Manual Diff / Slide Review NO; Basophils Absolute Auto 0 /uL (0-100); Basophils Percent Auto 0.7 % (0-2); Eosinophils Absolute Auto 400 /uL (0-450); Eosinophils Percent Auto 7.1 % (2-4); Hematocrit 34.7 % (36-46); Hemoglobin 11.9 g/dL (12.0-16.0); Lymphocytes Absolute Auto 1100 /uL (1100-4500); Lymphocytes Percent Auto 19.9 % (25-40); Mean Corpuscular HGB Conc 34.4 % (30-36); Mean Corpuscular Hemoglobin 32.1 PG (26-34); Mean Corpuscular Volume 93.2 fL (80-100); Monocytes Absolute Auto 400 /uL (0-900); Monocytes Percent Auto 7.9 % (3-14); Neutrophils Absolute Auto 3400 /uL (1500-7000); Neutrophils Percent Auto 64.4 % (50-75); Platelet Count 250 X10^3/uL (150-400); Red Blood Cell Count 3.73 X10^6/uL (4.0-5.2); Red Cell Distribution Width 13.2 % (11.6-14.8); White Blood Cell Count 5.3 X10^3/uL (4.5-11.0)
[2024-01-11 10:37] LABS: HEMOLYSIS < 15 (0-50); Iron 115 ug/dL (37-170)
[2024-01-11 10:41] LABS: Alanine Aminotransferase 20 IU/L (<35); Albumin 4.4 g/dL (3.5-5.0); Albumin Globulin Ratio 1.5 (1.0-2.8); Alkaline Phosphatase 74 U/L (38-126); Aspartate Aminotransferase 25 IU/L (14-36); Bilirubin Total 1.4 mg/dL (0.2-1.3); Blood Urea Nitrogen 8 mg/dL (7-17); Calcium 9.7 mg/dL (8.4-10.2); Carbon Dioxide 27 mmol/L (22-32); Chloride 108 mmol/L (98-107); Cholesterol 116 mg/dL (140-199); Estimated Glomerular Filt Rate > 60 mL/min (>60); Glucose 83 mg/dL (70-100); HDL Cholesterol 51 mg/dL (40-60); HEMOLYSIS < 15 (0-50); LDL Cholesterol Calculated 55 mg/dL (<100); Sodium 140 mmol/L (137-145); Total Protein 7.4 g/dL (6.3-8.2); Triglycerides 49 mg/dL (35-150)
[2024-01-11 10:48] LABS: Percent Iron Saturation 43 % (15-50); Total Iron Binding Capacity 266 ug/dL (265-497); Transferrin 209 mg/dL (206-381)
== END ==
LOC: LAB 08:17
PROVIDERS: PCP Family Medicine; Referring Provider Family Medicine; Visit Provider Family Medicine
DX: Z00.00 Encounter for general adult medical examination without abnormal findings (principal); Z76.89 Persons encountering health services in other specified circumstances; Z86.39 Personal history of other endocrine, nutritional and metabolic disease; Z13.220 Encounter for screening for lipoid disorders; R53.83 Other fatigue
CPT/HCPCS: 36415; 80053; 80061; 83540; 83550; 85025